=== PATIENT | female | born 1970 ===

== ENCOUNTER 2024-01-04 17:49 | Emergency (ER) | payer OTHER, SELFPAY ==
[2024-01-04 17:52] VITALS: BP 185/97
[2024-01-04 18:20] VITALS: BMI 53.1
--- NOTE | 2024-01-04 19:09 | ED.GENMED ---
History of Present Illness
General
Chief Complaint: DVT/Possible Blood Clot
Source: patient
Exam Limitations: none
Time Seen by Provider: 01/04/24 18:49
Travel History
Have you had any contact with someone who has COVID-19?: No
Do you have any symptoms of coronavirus? Fever > 100 degrees, chills, cough, shortness of breath, sore throat, loss of taste or smell, muscle aches, or headache?: No
History of Present Illness
History of Present Illness:
This is a 53 year old female that comes in with c/o right thigh pain. States that she has a history of Phlebitis and she has a superficial blood clot in the lower right leg. States that she also has a blood clot that resides in the right thigh that
is superficial. State that she started yesterday with pain in the right upper thigh that is different. States that she is concerned that this is a blood clot. Denies any fever, chills, chest pain, SOB, abd pain, nausea, vomiting, diarrhea, headache,
dizziness, urinary burning.
Past History
Past History
ED Past Medical History: Arrthythmia (Palpitations), GERD and Other (Phlebitis )
ED Past Surgical History: Gynecological (Tubal, ) and Orthopedic (Right knee surgery)
Social History
Tobacco: Former smoker
Alcohol: None
Personal:
Living: with family
Review of Systems
Review of Systems
All Other Systems: ROS reviewed and negative except as documented in HPI and ROS
Constitutional: Reports no symptoms; Denies fever or chills
EENT: Reports no symptoms
Respiratory: Denies no symptoms, cough or trouble breathing
Cardiac: Reports no symptoms; Denies chest pain
ABD/GI: Reports no symptoms; Denies abdominal pain, nausea, vomiting or diarrhea
: Reports no symptoms; Denies dysuria, frequency or urgency
Musculoskeletal: Reports other (Pain in the right thigh)
Skin: Reports no symptoms
Neurological: Reports no symptoms; Denies dizzy or headache
Psychiatric: Reports no symptoms
Phy Exam
General Physical Exam
General Presentation: well appearing and no apparent distress
General age: appears stated age
General Skin: warm and dry
General Habitus: normal
General Mental: alert
General Hydration: appears well hydrated
ENT Exam
ENT Exam: TM's normal, pharynx normal and neck supple
Eye Exam
Eye Exam: EOMI
Cardiovascular Exam
Cardiovascular Exam: regular rate/rhythm, no murmur and normal peripheral pulses
Pulmonary Exam
Pulmonary Exam: lungs clear, no respiratory distress, no rales, chest non tender, no crackles, no rhonchi, no wheezing and no cough
Musculoskeletal Exam
Musculoskeletal Exam: full ROM and other (Slight nonpitting ankle edema. Phlebitis right lateral calf area, negative for any redness at this time. )
Skin Exam
Skin Exam: normal color, warm/dry, no rash and no petechia
Psychiatric Exam
Psychiatric Exam: normal mood/affect
Course
Orders/Labs/Results
Orders:
Orders
01/04/24 19:08
US Periph Venous LOWER Ext RT Urgent
Comment: Has superficial blood clots known
Reason For Exam: pain right thigh.
Vital Signs
Initial and Last Documented VS:
Initial Vital Signs
Temp Pulse Resp BP Pulse Ox
98.0 F 75 18 185/97 98
01/04/24 17:52 01/04/24 17:52 01/04/24 17:52 01/04/24 17:52 01/04/24 17:52
Last Documented Vital Signs
Temp Pulse Resp BP Pulse Ox
98.0 F 75 18 185/97 98
01/04/24 17:52 01/04/24 17:52 01/04/24 17:52 01/04/24 17:52 01/04/24 17:52
MDM/Problems Addressed
Differential Diagnosis Includes:
DVT, Phlebitis,
MDM/Problems Addressed:
This is a 53 year old female that comes in with c/o right upper thigh pain. States that she has phlebitis in the right lower leg. States that this just felt different and she was concerned about a DVT.
Will get Ultrasound
Back into see patient. Explained that she is negative for a DVT. Patient can use Tylenol or ibuprofen for pain. heat or ice to the upper leg which ever makes her feel better. Follow up with the PCP. Return with any concerns.
Chronic conditions affecting care:
history of Phlebitis
Acute Exacerbation and/or Progression of Chronic Illness:
NA
*Radiology
Radiology exam reviewed: other (US- Negative for DVT)
*Pulse Oximetry
Patient hypoxic: no
*EKG
Interpreted by ED Provider?: NA
Rate: EKG- N/A
*Surgery Aid Interpretation
Rate: Surgery Aid- N/A
*Critical Care Note
Total Time (30-74mins, 75-104mins- exclusive of procedures): Not Applicable
ED Attending Note
-
Portions of this chart may have been created with voice recognition software.� Occasional wrong word or��sound alike� substitutions may have occurred due to the inherent limitations of voice recognition software.
Discharge Plan
Departure
Patient Disposition: Home (Routine Discharge)
Date of Disposition: 01/04/24
Time of Disposition: 20:25
Patient with high blood pressure during this ER visit?: Yes
Condition: Good
Covid-19: Not Applicable
Discharge Problem:
Acute pain of right thigh
Instructions: BLOOD PRESSURE
Referrals:
Kale Jin MD [Family Provider] - Call in 1-3 days for appt
Activity Restrictions/Additional Instructions:
As discussed, your Ultrasound is negative for DVT. You may use Tylenol or Ibuprofen for pain. You can use heat or ice which ever make your leg feel better. Follow up with the family doctor for recheck. IF YOU HAVE INCREASED OR CHANGING PAIN, REDNESS
OR YOU HAVE ANY OTHER CONCERNS PLEASE RETURN TO THE EMERGENCY ROOM.
Interventions
Interventions:
*Risk Screen - Suicide Last Done: 01/04/24 17:52
*General Assessment Last Done: 01/04/24 17:52
*Neglect/Abuse Screening Last Done: 01/04/24 17:52
ED- Fall Risk Assessment Last Done: 01/04/24 18:20
*ED COVID-19 Vaccine History Last Done: 01/04/24 18:20
ED- Cardiac Assessment Last Done: 01/04/24 18:20
ED- Pulmonary Assessment Last Done: 01/04/24 18:20
ED-Peripheral Vascular Assessment Last Done: 01/04/24 18:20
ED-Skin Assessment Last Done: 01/04/24 18:20
Discharge Date and Time
Print Language: MEXICAN
[2024-01-04 20:35] VITALS: BP 164/82
== END 2024-01-04 20:36 | disposition home or self-care (01) ==
LOC: EMR 17:49
PROVIDERS: EMERGENCY PHYSICIAN Emergency Medicine; FAMILY PHYSICIAN Internal Medicine
DX: M79.651 Pain in right thigh (principal); K21.9 Gastro-esophageal reflux disease without esophagitis; Z87.891 Personal history of nicotine dependence
CPT/HCPCS: 99284; 93971

== ENCOUNTER 2024-06-12 21:53 | Emergency (ER) | payer OTHER, SELFPAY ==
[2024-06-12 22:04] VITALS: BP 192/103
[2024-06-12 22:32] LABS: % Basophils 0.5 % (0-2); % Eosinophils 1.4 % (0-6); % Immature Granulocytes 0.2 % (0-0.5); % Lymphocytes 27.5 % (20.5-51.1); % Monocytes 8.3 % (1.7-9.3); % Neutrophils 62.1 % (42.2-75.2); Absolute Eosinophils 0.1 10^3/uL (0-0.7); Absolute Lymphocytes 2.4 10^3/uL (1.2-3.4); Absolute Monocytes 0.7 10^3/uL (0.1-0.6); Absolute Neutrophils 5.5 10^3/uL (1.4-6.5); Hematocrit 38.8 % (37.0-47.0); Hemoglobin 12.6 g/dL (12.0-16.0); Mean Corp Hgb Conc. 32.5 g/dL (33.0-37.0); Mean Corpuscular Hgb 27.5 pg (27.0-31.0); Mean Corpuscular Volume 84.7 fL (81.0-99.0); Mean Platelet Volume 10.1 fL (7.4-10.4); Nucleated Red Blood Cells % 0 %; Platelet Count 251 10^3/uL (130-400); Red Blood Cell Count 4.58 10^6/uL (4.20-5.40); White Blood Cell Count 8.9 10^3/uL (4.8-10.8)
--- NOTE | 2024-06-12 22:42 | ED.GENMED ---
History of Present Illness
General
Chief Complaint: Chest Pain
Source: patient
Exam Limitations: none
Time Seen by Provider: 06/12/24 22:31
History of Present Illness
History of Present Illness:
This is a 54 year old female that comes in with c/o chest pain. States that this morning she had some chest pain and right arm pain. States that this went away. Then at dinner she started with chest pain and left arm pain. States that she then
started with slight SOB, nausea and lightheadedness but she was unsure if this was a panic attack. States that at this time she has no chest pain but the left arm still hurts. States that she also had some diarrhea and a slight headache. Denies any
fever, chills, abd pain, vomiting, dizziness, urinary burning.
Past History
Past History
ED Past Medical History: Arrthythmia (Palpitations), GERD and Other (Phlebitis )
ED Past Surgical History: Gynecological (Tubal, ) and Orthopedic (Right knee surgery)
Social History
Tobacco: Former smoker
Alcohol: Occasional
Personal:
Living: with family
Review of Systems
Review of Systems
All Other Systems: ROS reviewed and negative except as documented in HPI and ROS
Constitutional: Reports no symptoms; Denies fever or chills
EENT: Reports no symptoms
Respiratory: Reports trouble breathing; Denies cough
Cardiac: Reports chest pain
ABD/GI: Reports nausea and diarrhea; Denies abdominal pain or vomiting
: Reports no symptoms; Denies dysuria, frequency or urgency
Musculoskeletal: Reports no symptoms
Skin: Reports no symptoms
Neurological: Reports headache (Slight); Denies dizzy
Psychiatric: Reports no symptoms
Phy Exam
General Physical Exam
General Presentation: well appearing and no apparent distress
General age: appears stated age
General Skin: warm and dry
General Habitus: obese
General Mental: alert
General Hydration: appears well hydrated
ENT Exam
ENT Exam: TM's normal, pharynx normal and neck supple
Eye Exam
Eye Exam: EOMI
Cardiovascular Exam
Cardiovascular Exam: regular rate/rhythm, no edema, no murmur and normal peripheral pulses
Pulmonary Exam
Pulmonary Exam: lungs clear, no respiratory distress, no rales, chest non tender, no crackles, no rhonchi, no wheezing and no cough
Gastrointestinal Exam
Gastrointestinal Exam: normal bowel sounds, non tender, soft, no organomegaly, no pulsatile mass, non distended and other (Obese)
Musculoskeletal Exam
Musculoskeletal Exam: full ROM and no edema
Skin Exam
Skin Exam: normal color, warm/dry, no rash and no petechia
Scores
Heart Score for Chest Pain Patients
STEMI patient?: No
History: Slightly or Non-Suspicious
ECG: Normal
Age: >45 - <65 years
Risk Factors: No Risk Factors
Troponin: </= Normal Limit
Heart Score for Chest Pain Patients: 1
Heart Score Risk: 2.5% MACE over next 6 weeks
Course
Orders/Labs/Results
Orders:
Orders
06/12/24 22:03
EKG [Electrocardiogram (*1)] Urgent
Reason for Study: Chest Pain
EKG- Treatment ONCE
06/12/24 22:27
Complete Blood Count/With Diff Urgent
Comprehensive Metabolic Panel Urgent
Troponin I Urgent
06/12/24 22:40
EKG- Treatment ONCE
06/12/24 22:41
Ondansetron Injectable [Zofran] 4 mg IV NOW STA
CR Chest - 2 Views Urgent
Comment:
Reason For Exam: Chest pain, SOB
06/13/24 01:22
Troponin I Urgent
06/13/24 01:30
Electrocardiogram (*1) Urgent
Reason for Study: Chest Pain
Other Reason for Exam: Repeat with Troponin
Abnormal Lab Results
06/12/24
22:27
MCHC 32.5 L g/dL
(33.0-37.0)
Absolute Monos (auto) 0.7 H 10^3/uL
(0.1-0.6)
BUN 22 H mg/dl
(7-17)
Glucose 114 H mg/dl
(70-99)
06/12/24 22:27
06/12/24 22:27
Dehydration. Glucose nonfasting. Troponin 0.017
Second Troponin <0.012
Vital Signs
Initial and Last Documented VS:
Initial Vital Signs
Temp Pulse Resp BP Pulse Ox
98.1 F 79 19 192/103 99
06/12/24 22:04 06/12/24 22:04 06/12/24 22:04 06/12/24 22:04 06/12/24 22:04
Last Documented Vital Signs
Temp Pulse Resp BP Pulse Ox
98.1 F 80 17 159/77 96
06/12/24 22:04 06/13/24 00:48 06/13/24 00:48 06/13/24 00:48 06/13/24 00:48
MDM/Problems Addressed
Differential Diagnosis Includes:
Panic attack, coronary syndrome.
MDM/Problems Addressed:
This is a 54 year old female that comes in with c/o chest pain and arm pain. States that this morning she had chest pain with right arm pain which went away and then after dinner she had chest pain with left arm pain. States that her chest pain is
gone and her arm still hurts.
Will get labs, chest x-ray,
Repeat ECG: rate 72, NSR, Normal axis. Normal QRS, Negative for ischemia. Checked by Dr. Spence
Back into see patient. Explained that her blood work show dehydration. Encouraged patient to increase her water intake to 8-8oz glasses daily. Patient chest x-ray is normal along with the D-dimer. Due patient c/o arm pain with the chest pain, will
place patient on the Cardiology hot line for further evaluation. Patient to return with increased pain, or any other concerns .
Chronic conditions affecting care:
Palpitations
Acute Exacerbation and/or Progression of Chronic Illness:
Palpitations
*Radiology
Radiology exam reviewed: preliminary read by ED provider (Chest- negative for active disease)
*Pulse Oximetry
Patient hypoxic: no
*EKG
Interpreted by ED Provider?: Yes
Heart Rate: 75
Rate: normal
Rhythm: sinus
[place]: normal axis
Interval: normal interval
QRS Pattern: normal QRS
Ischemia: no ischemia
*[place] Interpretation
Rate: normal
Heart Rate: 81
Rhythm: sinus
*Critical Care Note
Total Time (30-74mins, 75-104mins- exclusive of procedures): Not Applicable
ED Attending Note
-
Portions of this chart may have been created with voice recognition software.� Occasional wrong word or��sound alike� substitutions may have occurred due to the inherent limitations of voice recognition software.
Discharge Plan
Departure
Patient Disposition: Home (Routine Discharge)
Date of Disposition: 06/13/24
Time of Disposition: 02:08
Patient with high blood pressure during this ER visit?: Yes
Condition: Good
Covid-19: Not Applicable
Discharge Problem:
Chest pain
Instructions: Chest Pain DCA Follow Up, BLOOD PRESSURE
Referrals:
Kale Jin MD [Family Provider] - Follow up in 2-3 days
Activity Restrictions/Additional Instructions:
As discussed, your blood work shows that you are a little Dehydration. Please increase your water intake to 8-8oz glasses daily. Your chest X-ray is normal. Your both Troponin which are specific for the heart are normal. However, you have been place
on the cardiology hot line. This means that the Utility Specialist office will call you the next business day and get you set up for a hand cigar making supervisor appointment for further evaluation. IF YOU HAVE INCREASED OR CHANGING PAIN, OR YOU HAVE ANY OTHER CONCERNS
PLEASE RETURN TO THE EMERGENCY ROOM
Interventions
Interventions:
*Risk Screen - Suicide Last Done: 06/12/24 23:24
*General Assessment Last Done: 06/12/24 23:24
*Neglect/Abuse Screening Last Done: 06/12/24 23:24
ED- Fall Risk Assessment Last Done: 06/12/24 23:24
*ED COVID-19 Vaccine History Last Done: 06/12/24 23:24
ED- Cardiac Assessment Last Done: 06/12/24 22:33
Discharge Date and Time
Print Language: [place]
[2024-06-12 22:51] LABS: ALT (SGPT) 17 U/L (0-35); AST (SGOT) 19 U/L (14-36); Albumin 4.4 g/dl (3.5-5.0); Alkaline Phosphatase 61 U/L (38-126); Blood Urea Nitrogen 22 mg/dl (7-17); Calcium 9.8 mg/dl (8.4-10.2); Carbon Dioxide 27 mmol/L (22-30); Chloride 103 mmol/L (98-107); Glucose 114 mg/dl (70-99); Potassium 4.3 mmol/L (3.5-5.1); Sodium 141 mmol/L (135-145); Total Bilirubin 0.4 mg/dl (0.2-1.3); eGFR > 60.00
[2024-06-12 23:07] LABS: Troponin I 0.017 ng/ml
[2024-06-13 00:48] VITALS: BP 159/77
[2024-06-13 01:00] VITALS: BP 163/88
[2024-06-13 01:39] VITALS: BP 152/60
[2024-06-13 01:59] LABS: Troponin I < 0.012 ng/ml
[2024-06-13 02:00] VITALS: BP 136/54
== END 2024-06-13 02:30 | disposition home or self-care (01) ==
LOC: EMR 21:53
PROVIDERS: Clinical Nurse Specialist Family Health; EMERGENCY PHYSICIAN Emergency Medicine; FAMILY PHYSICIAN Internal Medicine
DX: R07.9 Chest pain, unspecified (principal); R06.02 Shortness of breath; R11.0 Nausea; R42 Dizziness and giddiness; E86.0 Dehydration; M79.602 Pain in left arm; M79.601 Pain in right arm; R51.9 Headache, unspecified; R19.7 Diarrhea, unspecified; R03.0 Elevated blood-pressure reading, without diagnosis of hypertension; K21.9 Gastro-esophageal reflux disease without esophagitis; M19.90 Unspecified osteoarthritis, unspecified site; Z87.891 Personal history of nicotine dependence; Z88.1 Allergy status to other antibiotic agents; Z88.2 Allergy status to sulfonamides
CPT/HCPCS: 99284; 71046; 80053; 84484; 85025; 93005